=== PATIENT | female | born 1985 | race Two or more races ===

== ENCOUNTER → 2024-06-20 | Outpatient (CLI) | payer BC, SELFPAY ==
--- NOTE | 2024-06-20 10:01 | XR_ITS ---
Examination: Breast ultrasound complete, bilateral Date and time of exam: June 20, 2024 1012 hours INDICATIONS: Left breast pain beginning 4 months ago, family history breast cancer Technique: Real-time grayscale ultrasonographic imaging bilateral breasts, including all 4 quadrants as well as nipple retroareolar and axillary regions. Findings: Sonographic images right breast 3:00 cyst 5 x 6 mm 10:00 cyst 7 x 7 mm Sonographic images left breast 2:00 cyst 6 x 7 mm Retroareolar cyst 12 x 9 mm Multiple bilateral smaller cysts No solid nodules IMPRESSION: BI-RADS Category 2: Benign findings
== END | disposition home or self-care (01) ==
PROVIDERS: PCP Specialist; Referring Provider Specialist; Visit Provider Specialist
DX: R92.323 Mammographic fibroglandular density, bilateral breasts (principal); N60.02 Solitary cyst of left breast; N60.01 Solitary cyst of right breast; Z98.82 Breast implant status
CPT/HCPCS: 76641

== ENCOUNTER → 2024-08-01 | Outpatient (BNVA) | payer BC, SELFPAY | END | disposition home or self-care (01) | PROVIDERS: PCP Nurse Practitioner Primary Care; Referring Provider Nurse Practitioner Primary Care; Visit Provider Nurse Practitioner Primary Care | DX: M25.572 Pain in left ankle and joints of left foot (principal); M25.571 Pain in right ankle and joints of right foot | CPT/HCPCS: 99203 ==

== ENCOUNTER → 2024-08-01 | Outpatient (CLI) | payer BC, SELFPAY ==
--- NOTE | 2024-08-01 16:28 | XR_ITS ---
Examination: Foot bilateral, 6 views Technique: AP, oblique, lateral views each foot total 6 views Date and time of exam: August 01, 2024 at 1645 hours INDICATIONS: Bilateral foot pain beginning 3 months ago. FINDINGS: Mild osteopenia Minimal right bunion deformity No fracture or dislocation involving either foot Bilateral minimal narrowing first metatarsophalangeal joints No cortical bone destruction No foreign bodies IMPRESSION: Minimal right bunion deformity Bilateral minimal narrowing first metatarsophalangeal joints
== END | disposition home or self-care (01) ==
LOC: CDIM 16:18
PROVIDERS: Referring Provider Nurse Practitioner Primary Care; Visit Provider Nurse Practitioner Primary Care
DX: M21.611 Bunion of right foot (principal); M25.872 Other specified joint disorders, left ankle and foot; M25.871 Other specified joint disorders, right ankle and foot
CPT/HCPCS: 73630

== ENCOUNTER → 2024-08-07 | Outpatient (BNVA) | payer BC, SELFPAY | END | disposition home or self-care (01) | PROVIDERS: PCP Nurse Practitioner Primary Care; Referring Provider Nurse Practitioner Primary Care; Visit Provider Nurse Practitioner Primary Care | DX: M21.611 Bunion of right foot (principal); M25.572 Pain in left ankle and joints of left foot; M25.571 Pain in right ankle and joints of right foot | CPT/HCPCS: 99212; G0463 ==

== ENCOUNTER → 2024-11-01 | Outpatient (BNVA) | payer BC, SELFPAY | END | disposition home or self-care (01) | PROVIDERS: PCP Nurse Practitioner Primary Care; Referring Provider Nurse Practitioner Primary Care; Visit Provider Nurse Practitioner Primary Care | DX: Z00.01 Encounter for general adult medical examination with abnormal findings (principal); M79.672 Pain in left foot; E55.9 Vitamin D deficiency, unspecified; R73.03 Prediabetes; Z71.85 Encounter for immunization safety counseling; Z11.3 Encounter for screening for infections with a predominantly sexual mode of transmission | CPT/HCPCS: 99173; 99395; G0439 ==

== ENCOUNTER → 2024-11-22 | Outpatient (BNVA) | payer BC, SELFPAY | END | disposition home or self-care (01) | PROVIDERS: PCP Nurse Practitioner Primary Care; Referring Provider Nurse Practitioner Primary Care; Visit Provider Nurse Practitioner Primary Care | DX: Z71.2 Person consulting for explanation of examination or test findings (principal); E78.00 Pure hypercholesterolemia, unspecified; Z23 Encounter for immunization; I83.93 Asymptomatic varicose veins of bilateral lower extremities | CPT/HCPCS: 90471; 90715; 99213 ==

== ENCOUNTER → 2025-01-28 | Outpatient (CLI) | payer BC, SELFPAY ==
--- NOTE | 2025-01-28 10:00 | XR_ITS ---
Examination: Breast ultrasound complete, bilateral Date and time of exam: January 28, 2025, 1001 hours, comparison June 20, 2024 INDICATIONS: Bilateral breast pain several years, family history of breast cancer, history breast cystic disease Technique: Real-time grayscale ultrasonographic imaging bilateral breasts, including all 4 quadrants as well as nipple retroareolar and axillary regions. Findings: Sonographic images right breast Multiple benign cysts Retroareolar solid nodule 6 x 6 mm circumscribed Sonographic images left breast Multiple benign cysts IMPRESSION: BI-RADS Category 3: Probably benign findings 1 additional 6-month right breast sonogram follow-up is needed to document stability of retroareolar solid nodule described above
== END | disposition home or self-care (01) ==
LOC: CDIM 09:43
PROVIDERS: PCP Nurse Practitioner Primary Care; Referring Provider Specialist; Visit Provider Specialist
DX: N63.41 Unspecified lump in right breast, subareolar (principal)
CPT/HCPCS: 76641